=== PATIENT | male | born 1945 | race Caucasian/White ===

== ENCOUNTER → 2016-05-27 | Outpatient (CLI) | payer MEDICARE, OTHER ==
[~2016-05-27] MED LIST: ATEN50TA80; CELE100C82; WARF5TAB
[2016-05-27 12:00] LABS: Basophils # (auto) 0 uL; Basophils % (auto) 0.4 % (0.0-2.0); Eosinophils # (auto) 0.1 uL; Eosinophils % (auto) 1.8 % (0.0-7.0); Hematocrit 44.4 % (41.0-53.0); Hemoglobin 13.9 g/dL (13.5-17.5); Lymphocytes # (auto) 1.9 uL; Lymphocytes % (auto) 27.5 % (10.0-50.0); Mean Corpuscular Hemoglobin 30.6 pg (28.0-32.0); Mean Corpuscular Hgb Conc. 31.4 g/dL (32.0-36.0); Mean Corpuscular Volume 97.7 fL (80.0-100.0); Mean Platelet Volume 12.9 fL (7.4-10.4); Monocytes # (auto) 0.9 uL; Monocytes % (auto) 13.5 % (0.0-12.0); Neutrophils # (auto) 3.8 uL; Neutrophils % (auto) 56.8 % (37.0-80.0); Platelet Count (auto) 165 10^3/uL (140-450); Red Cell Distribution Width 15.4 % (11.6-16.0); White Blood Cell 6.8 10^3/uL (4.4-10.8)
[2016-05-27 12:25] LABS: BUN/Creatinine Ratio 29.4; Potassium 4.4 mmol/L (3.5-5.1)
[2016-05-27 13:39] LABS: B-Type Natriuretic Peptide 323.76 pg/mL (0-100); Temperature: 22.2 C (20.0-25.0)
== END | disposition home or self-care (01) ==
LOC: LAB 08:01
PROVIDERS: ATTEND Internal Medicine Cardiovascular Disease
DX: I10 Essential (primary) hypertension (principal); D64.9 Anemia, unspecified; I50.9 Heart failure, unspecified
CPT/HCPCS: 36415; 80048; 83880; 85025

== ENCOUNTER → 2016-06-10 | Outpatient (CLI) | payer MEDICARE, OTHER ==
[~2016-06-10] MED LIST changes: +FUROSEMIDE 40 MG/4 ML VIAL ONE; +POTASSIUM CHL 20 Meq TABLET PO ONE
[2016-06-10 15:43] LABS: Basophils # (auto) 0 uL; Basophils % (auto) 0.5 % (0.0-2.0); Eosinophils # (auto) 0.1 uL; Eosinophils % (auto) 1.7 % (0.0-7.0); Hematocrit 42.5 % (41.0-53.0); Hemoglobin 13.9 g/dL (13.5-17.5); Lymphocytes # (auto) 2.6 uL; Lymphocytes % (auto) 33.1 % (10.0-50.0); Mean Corpuscular Hemoglobin 31.3 pg (28.0-32.0); Mean Corpuscular Hgb Conc. 32.7 g/dL (32.0-36.0); Mean Corpuscular Volume 95.5 fL (80.0-100.0); Mean Platelet Volume 11.3 fL (7.4-10.4); Monocytes % (auto) 12.9 % (0.0-12.0); Neutrophils # (auto) 4.1 uL; Neutrophils % (auto) 51.8 % (37.0-80.0); Platelet Count (auto) 174 10^3/uL (140-450); Red Cell Distribution Width 15.4 % (11.6-16.0)
[2016-06-10 16:30] LABS: BUN/Creatinine Ratio 19.8; Magnesium 2.2 mg/dL (1.6-2.6); Potassium 4.1 mmol/L (3.5-5.1)
== END | disposition home or self-care (01) ==
LOC: CHF HDHVI 10:52
PROVIDERS: ATTEND Internal Medicine Cardiovascular Disease
DX: I10 Essential (primary) hypertension (principal); E11.9 Type 2 diabetes mellitus without complications; E83.40 Disorders of magnesium metabolism, unspecified; D64.9 Anemia, unspecified; E55.9 Vitamin D deficiency, unspecified
CPT/HCPCS: 36415; 80048; 82306; 83036; 83735; 85025

== ENCOUNTER → 2016-06-14 | Outpatient (CLI) | payer MEDICARE, OTHER ==
[~2016-06-14] MED LIST changes: -FUROSEMIDE 40 MG/4 ML VIAL ONE; -POTASSIUM CHL 20 Meq TABLET PO ONE
== END | disposition home or self-care (01) ==
LOC: Rad HDHVI 13:46
PROVIDERS: ATTEND Internal Medicine Cardiovascular Disease
DX: I11.0 Hypertensive heart disease with heart failure (principal); I50.23 Acute on chronic systolic (congestive) heart failure; I50.9 Heart failure, unspecified; I07.1 Rheumatic tricuspid insufficiency; R55 Syncope and collapse
CPT/HCPCS: 93306

== ENCOUNTER → 2016-10-21 | Outpatient (CLI) | payer MEDICARE, OTHER ==
[~2016-10-21] MED LIST changes: +CYANOCOBALAMIN (B-12) 1000 MCG/1 ML VIAL IM ONE; +CYANOCOBALAMIN (B-12) 1000 MCG/1 ML VIAL ONE
[2016-10-21 09:15] VITALS: BP 110/59
[2016-10-21 10:45] VITALS: BP 119/56
[2016-10-21 12:37] LABS: Basophils # (auto) 0 uL; Basophils % (auto) 0.4 % (0.0-2.0); CONDITION Y; Eosinophils # (auto) 0.1 uL; Eosinophils % (auto) 2.1 % (0.0-7.0); Hematocrit 35.5 % (41.0-53.0); Hemoglobin 11.6 g/dL (13.5-17.5); Lymphocytes # (auto) 1.2 uL; Lymphocytes % (auto) 18.2 % (10.0-50.0); Mean Corpuscular Hemoglobin 30.5 pg (28.0-32.0); Mean Corpuscular Hgb Conc. 32.8 g/dL (32.0-36.0); Mean Corpuscular Volume 92.8 fL (80.0-100.0); Mean Platelet Volume 11.5 fL (7.4-10.4); Monocytes # (auto) 0.7 uL; Monocytes % (auto) 10.1 % (0.0-12.0); Neutrophils # (auto) 4.7 uL; Neutrophils % (auto) 69.2 % (37.0-80.0); Platelet Count (auto) 164 10^3/uL (140-450); Red Cell Distribution Width 15.4 % (11.6-16.0); SUSPECT SEE PRINTOUT; White Blood Cell 6.8 10^3/uL (4.4-10.8)
[2016-10-21 12:51] LABS: BUN/Creatinine Ratio 18.7; Calcium 8.7 mg/dL (8.5-10.1); Magnesium 2.2 mg/dL (1.6-2.6); Potassium 3.8 mmol/L (3.5-5.1)
== END | disposition home or self-care (01) ==
LOC: CHF HDHVI 09:20
PROVIDERS: ATTEND Internal Medicine Cardiovascular Disease
DX: I10 Essential (primary) hypertension (principal); E11.9 Type 2 diabetes mellitus without complications; D64.9 Anemia, unspecified; E55.9 Vitamin D deficiency, unspecified
CPT/HCPCS: 36415; 80048; 82306; 82962; 83036; 83735; 85025; 93701; 96372; G0463; J3420

== ENCOUNTER → 2016-11-04 | Outpatient (CLI) | payer MEDICARE, OTHER ==
[2016-11-04 08:00] VITALS: BP 112/54
[2016-11-04 08:46] VITALS: BP 111/59
[2016-11-04 12:45] LABS: Potassium 4.3 mmol/L (3.5-5.1)
== END | disposition home or self-care (01) ==
LOC: CHF HDHVI 08:09
PROVIDERS: ATTEND Internal Medicine Cardiovascular Disease
DX: E87.6 Hypokalemia (principal); R94.4 Abnormal results of kidney function studies; T46.0X6D Underdosing of cardiac-stimulant glycosides and drugs of similar action, subsequent encounter
CPT/HCPCS: 36415; 80162; 82565; 84132; 84520; 96372; G0463; J3420

== ENCOUNTER → 2016-11-15 | Outpatient (CLI) | payer MEDICARE, OTHER ==
[~2016-11-15] MED LIST changes: -CYANOCOBALAMIN (B-12) 1000 MCG/1 ML VIAL IM ONE; -CYANOCOBALAMIN (B-12) 1000 MCG/1 ML VIAL ONE
== END | disposition home or self-care (01) ==
LOC: Rad HDHVI 13:39
PROVIDERS: ATTEND Internal Medicine Cardiovascular Disease
DX: I87.2 Venous insufficiency (chronic) (peripheral) (principal); M79.89 Other specified soft tissue disorders
CPT/HCPCS: 93970

== ENCOUNTER → 2017-04-06 | Outpatient (CLI) | payer MEDICARE, OTHER ==
[~2017-04-06] MED LIST changes: +CYANOCOBALAMIN (B-12) 1000 MCG/1 ML VIAL ONE
[2017-04-06 10:45] VITALS: BP 132/57
[2017-04-06 10:46] LABS: Urine RBC None Seen /hpf (0 - 3)
[2017-04-06 13:28] VITALS: BP 132/77
[2017-04-06 16:59] LABS: BUN/Creatinine Ratio 17.7; Bilirubin, Total 1.1 mg/dL (0.2-1.0); Calcium 8.6 mg/dL (8.5-10.1); Magnesium 2.3 mg/dL (1.6-2.6); Potassium 3.7 mmol/L (3.5-5.1); Total Protein 7.6 g/dL (6.4-8.2); Uric Acid 10.6 mg/dL (3.5-7.2)
[2017-04-06 17:01] LABS: Urine Bilirubin Negative (Negative); Urine Blood Negative /uL (Negative); Urine Color Yellow (Yellow); Urine Glucose Normal (Normal); Urine Hyaline Cast FEW /lpf (0 - 2); Urine Ketone Negative (Negative); Urine Nitrite Negative (Negative); Urine Urobilinogen Normal (Negative)
[2017-04-06 17:46] LABS: Basophils # (auto) 0 uL; Basophils % (auto) 0.9 % (0.0-2.0); Eosinophils # (auto) 0.1 uL; Eosinophils % (auto) 1.9 % (0.0-7.0); Hematocrit 34.8 % (41.0-53.0); Hemoglobin 10.7 g/dL (13.5-17.5); Lymphocytes # (auto) 1.2 uL; Lymphocytes % (auto) 22.2 % (10.0-50.0); Mean Corpuscular Hgb Conc. 30.9 g/dL (32.0-36.0); Mean Corpuscular Volume 84.2 fL (80.0-100.0); Mean Platelet Volume 10.2 fL (6.9-10.8); Monocytes # (auto) 0.8 uL; Neutrophils # (auto) 3.2 uL; Nucleated Red Blood Cells % 0.5 %; Platelet Count (auto) 174 10^3/uL (140-450); Red Cell Distribution Width 18.4 % (11.8-14.3); White Blood Cell 5.4 10^3/uL (4.4-10.8)
[2017-04-08 04:06] LABS: PSA Free 1.82 ng/mL; Prostate Specific Antigen 7.9 ng/mL (0.0-4.0)
== END | disposition home or self-care (01) ==
LOC: CHF HDHVI 10:06
PROVIDERS: ATTEND Internal Medicine Cardiovascular Disease
DX: I10 Essential (primary) hypertension (principal); E11.9 Type 2 diabetes mellitus without complications; I48.91 Unspecified atrial fibrillation; D64.9 Anemia, unspecified; M10.9 Gout, unspecified; N39.0 Urinary tract infection, site not specified; R97.20 Elevated prostate specific antigen [PSA]; Z79.899 Other long term (current) drug therapy
CPT/HCPCS: 36415; 80053; 80162; 81001; 83036; 83735; 84153; 84154; 84403; 84550; 85025; J3420

== ENCOUNTER → 2017-05-23 | Outpatient (CLI) | payer MEDICARE, OTHER ==
[~2017-05-23] MED LIST changes: +CYANOCOBALAMIN (B-12) 1000 MCG/1 ML VIAL IM ONE
[2017-05-23 12:45] VITALS: BP 118/55
[2017-05-23 13:45] VITALS: BP 116/56
== END | disposition home or self-care (01) ==
LOC: CHF HDHVI 13:10
PROVIDERS: ATTEND Internal Medicine Cardiovascular Disease
DX: R53.83 Other fatigue (principal); R53.81 Other malaise; C80.1 Malignant (primary) neoplasm, unspecified; I25.10 Atherosclerotic heart disease of native coronary artery without angina pectoris; R53.1 Weakness
CPT/HCPCS: 96372; G0463; J3420

== ENCOUNTER → 2017-05-26 | Outpatient (CLI) | payer MEDICARE, OTHER ==
[~2017-05-26] MED LIST changes: -CYANOCOBALAMIN (B-12) 1000 MCG/1 ML VIAL IM ONE; -CYANOCOBALAMIN (B-12) 1000 MCG/1 ML VIAL ONE
== END | disposition home or self-care (01) ==
LOC: Rad HDHVI 11:43
PROVIDERS: ATTEND Internal Medicine Cardiovascular Disease
DX: J90 Pleural effusion, not elsewhere classified (principal); I51.7 Cardiomegaly; J98.11 Atelectasis
CPT/HCPCS: 71046